=== PATIENT | female | born 1955 | race Caucasian/White ===

== ENCOUNTER 2017-06-29 11:38 | Emergency (ER) | payer MEDICAID ==
[2017-06-29 13:30] VITALS: BP 147/85
== END 2017-06-29 13:40 | disposition home or self-care (01) ==
LOC: ED 11:38
DX: M75.101 Unspecified rotator cuff tear or rupture of right shoulder, not specified as traumatic (principal); I10 Essential (primary) hypertension
CPT/HCPCS: Q0092